=== PATIENT | male | born 1985 | race Caucasian/White ===

== ENCOUNTER 2019-12-21 16:21 | Emergency (ER) | payer BC, SELFPAY ==
[~2019-12-21] VITALS: Ht 165.1 cm; Wt 106.6 kg
[2019-12-21 16:22] VITALS: Ht 165.1 cm; Wt 106.6 kg
[2019-12-21 17:44] VITALS: BP 118/62
== END 2019-12-21 17:44 | disposition home or self-care (01) ==
LOC: ED 16:21
DX: J02.9 Acute pharyngitis, unspecified (principal); R51.9 Headache, unspecified; M79.10 Myalgia, unspecified site; Z20.828 Contact with and (suspected) exposure to other viral communicable diseases
CPT/HCPCS: U0003